=== PATIENT | male | born 1940 | race Caucasian/White ===

== ENCOUNTER 2017-07-19 23:45 | Observation (INO) | payer MEDICARE, OTHER ==
[~2017-07-19] VITALS: Ht 182.9 cm; Wt 75.0 kg
[2017-07-19 23:47] VITALS: BP 96/56; PULSE 75; RESP 16; O2SAT 94
[2017-07-20] VITALS (11 sets, daily range): BP systolic 107–152; BP diastolic 57–79; PULSE 55–88; RESP 16–20; TEMP 95.4–95.6; O2SAT 93–96
--- NOTE | 2017-07-20 00:30 | PD ---
HPI Chief Complaint: Chest Pain Time Seen by Provider: 00:02 Travel History International Travel<30 days: No Contact w/Intl Traveler<30days: No Traveled to known affect area: No History of Present Illness HPI 76yo M with PMH of AAA [facility] ED [facility] for chest pain. Said chest pain is midsternal and radiated to left arm and abdomen. Denies any sob, n/v, abdominal pain, focal weakness or numbness. PFSH Past Medical History AAA: Yes Atrial Fibrillation: Yes Depression: Yes Congestive Heart Failure: Yes Dementia: Yes Hypertension: Yes Medical other: Yes (SPINAL STENOSIS) Parkinson's Disease: Yes Schizophrenia: Yes Past Surgical History Appendectomy: Yes Tonsillectomy: Yes Social History Alcohol Use: No Tobacco Use: No Substance Use: No Allergies-Medications (Allergen,Severity, Reaction): Coded Allergies: No Known Drug Allergies (Verified Allergy, Unknown, 07/20/17) Reported Meds & Prescriptions Reported Meds & Active Scripts Active Reported Aplisol (Tuberculin Ppd) 5 Tub. Unit/0.1 Ml Inj 5 Unit ID Senna-Tabs (Sennosides) 8.6 Mg Tab 8.6 Mg PO DAILY Potassium Chloride ER (Potassium Chloride) 20 Meq Tab 20 Meq PO BID Carvedilol 3.125 Mg Tab 3.125 Mg PO BID Digoxin 0.125 Mg Tab 0.125 Mg PO DAILY Furosemide 20 Mg Tab 20 Mg PO DAILY Percocet (Oxycodone-Acetaminophen) 5-325 mg Tab 1 Tab PO Q6H PRN Melatonin 5 Mg Tab 3 Mg PO HS Almacone Liq (Pkmrsxnh-Cvfbhvozp-Rdlcqpqpfhq Liq) 200-200-20 Mg/5 Ml Susp 10 Ml PO QID Take between meals or as directed. Shake well. Do not exceed 120 mL/24 hrs. Mucinex DM (Dextromethorphan-Guaifenesin) 30-600 Mg Tab 1 Tab PO BID PRN Atorvastatin (Atorvastatin Calcium) 40 Mg Tab 40 Mg PO HS Fluoxetine (Fluoxetine HCl) 40 Mg Cap 40 Cap PO DAILY Aspirin 81 Mg Chew 81 Mg CHEW DAILY Klor-Con 10 (Potassium Chloride) 10 Meq Tab 10 Meq PO BID Gabapentin 100 Mg Cap 100 Mg PO TID Amantadine (Amantadine HCl) 100 Mg Tab 100 Mg PO BID Docusate Sodium 100 Mg Cap 100 Mg PO DAILY Milk of Magnesia Liq (Magnesium Hydroxide) 400 Mg/5 Ml Susp 5 Ml PO DAILY PRN Lisinopril 2.5 Mg Tab 2.5 Mg PO DAILY Review of Systems Except as stated in HPI: all other systems reviewed are Neg Physical Exam Narrative GENERAL: 76yo M in mild distress. SKIN: Focused skin assessment warm/dry. HEAD: Atraumatic. Normocephalic. EYES: Pupils equal and round. No scleral icterus. No injection or drainage. ENT: No nasal bleeding or discharge. Mucous membranes pink and moist. NECK: Trachea midline. No JVD. CARDIOVASCULAR: Regular rate and rhythm. No murmur appreciated. RESPIRATORY: No accessory muscle use. Clear to auscultation. Breath sounds equal bilaterally. GASTROINTESTINAL: Abdomen soft, mild epigastric ttp. No rebound tenderness or guarding. MUSCULOSKELETAL: No obvious deformities. No clubbing. No cyanosis. No edema. NEUROLOGICAL: Awake and alert. No obvious cranial nerve deficits. Motor grossly within normal limits. Normal speech. PSYCHIATRIC: Appropriate mood and affect; insight and judgment normal. Data Data Last Documented VS Vital Signs Date Time Temp Pulse Resp B/P (MAP) Pulse Ox O2 Delivery O2 Flow Rate FiO2 07/20/17 04:00 62 16 121/63 (82) 95 Nasal Cannula 2.00 Orders Orders Basic Metabolic Panel (Bmp) (07/20/17 00:12) Complete Blood Count With Diff (07/20/17 00:12) Magnesium (Mg) (07/20/17 00:12) Prothrombin Time / Inr (Pt) (07/20/17 00:12) Act Partial Throm Time (Ptt) (07/20/17 00:12) Troponin I (07/20/17 00:12) Chest, Single Ap (07/20/17 00:12) Ecg Monitoring (07/20/17 00:12) Bilateral Bp Monitoring (07/20/17 00:12) Iv Access Insert/Monitor (07/20/17 00:12) Oximetry (07/20/17 00:12) Cta Thor Abd Aorta W Iv C W3d (07/20/17 00:12) Iohexol 350 Inj (Omnipaque 350 Inj) (07/20/17 02:06) Admit Order (Ed Use Only) (07/20/17 04:15) Labs Laboratory Tests Test 07/20/17 00:20 White Blood Count 5.3 TH/MM3 Red Blood Count 4.08 MIL/MM3 Hemoglobin 12.4 GM/DL Hematocrit 38.2 % Mean Corpuscular Volume 93.7 FL Mean Corpuscular Hemoglobin 30.4 PG Mean Corpuscular Hemoglobin Concent 32.5 % Red Cell Distribution Width 14.6 % Platelet Count 141 TH/MM3 Mean Platelet Volume 8.3 FL Neutrophils (%) (Auto) 55.9 % Lymphocytes (%) (Auto) 31.2 % Monocytes (%) (Auto) 8.9 % Eosinophils (%) (Auto) 3.0 % Basophils (%) (Auto) 1.0 % Neutrophils # (Auto) 3.0 TH/MM3 Lymphocytes # (Auto) 1.7 TH/MM3 Monocytes # (Auto) 0.5 TH/MM3 Eosinophils # (Auto) 0.2 TH/MM3 Basophils # (Auto) 0.1 TH/MM3 CBC Comment DIFF FINAL Differential Comment Prothrombin Time 12.4 SEC Prothromb Time International Ratio 1.2 RATIO Activated Partial Thromboplast Time 33.8 SEC Blood Urea Nitrogen 16 MG/DL Creatinine 0.65 MG/DL Random Glucose 62 MG/DL Calcium Level 7.8 MG/DL Magnesium Level 1.9 MG/DL Sodium Level 146 MEQ/L Potassium Level 4.0 MEQ/L Chloride Level 108 MEQ/L Carbon Dioxide Level 34.9 MEQ/L Anion Gap 3 MEQ/L Estimat Glomerular Filtration Rate 119 ML/MIN Troponin I 0.03 NG/ML [facility] Medical Decision Making Medical Screen Exam Complete: Yes Emergency Medical Condition: Yes Interpretation(s) EKG: Afib 62bpm. RBBB. Differential Diagnosis ACS vs. aortic dissection vs. GERD Narrative Course 76yo M with midsternal chest pain that radiates to abdomen and left arm. Labs reviewed, no leukocytosis. Troponin negative at 0.03. Glucose low at 62, given juice. CXR negative. CTA showed no acute findings. Pt currently with no chest pain. Will give aspirin and admit to chest pain center. Diagnosis Primary Impression: Chest pain Qualified Codes: R07.9 - Chest pain, unspecified Admitting Information Admitting Physician Requests: Noreen RiveraMyrna DO Jul 20, 2017 00:30
[2017-07-20 00:33] LABS: BASOPHIL # 0.1 TH/MM3 (0-0.2); EOSINOPHIL # 0.2 TH/MM3 (0-0.4); HEMATOCRIT 38.2 % (39.0-51.0); HEMOGLOBIN 12.4 GM/DL (13.0-17.0); LYMPH % 31.2 % (9.0-44.0); LYMPHOCYTE # 1.7 TH/MM3 (1.0-4.8); MEAN CELL VOLUME 93.7 FL (80.0-100.0); MEAN CORPUSCULAR HEMOGLOBIN 30.4 PG (27.0-34.0); MEAN CORPUSCULAR HGB CONC 32.5 % (32.0-36.0); MEAN PLATELET VOLUME 8.3 FL (7.0-11.0); MONO % 8.9 % (0.0-8.0); MONOCYTE # 0.5 TH/MM3 (0-0.9); NEUT % 55.9 % (16.0-70.0); PLATELET COUNT 141 TH/MM3 (150-450); RED BLOOD COUNT 4.08 MIL/MM3 (4.50-5.90); RED CELL DISTRIBUTION WIDTH 14.6 % (11.6-17.2); WHITE BLOOD COUNT 5.3 TH/MM3 (4.0-11.0)
--- NOTE | 2017-07-20 01:02 | RADRPT ---
EXAM DATE/TIME: 07/20/2017 00:33 [facility] COMPARISON: No previous studies available for comparison. INDICATIONS : Chest pain. MEDICAL HISTORY : Unobtainable SURGICAL HISTORY : Unobtainable ENCOUNTER: Initial ACUITY: 1 day PAIN SCORE: Non-responsive. LOCATION: Bilateral chest FINDINGS: A single view of the chest demonstrates the lungs to be symmetrically aerated without evidence of mas s, infiltrate or effusion. The cardiomediastinal contours are unremarkable. Osseous structures are intact. CONCLUSION: No acute disease. Ehsan Alva MD on July 20, 2017 at 0:59 Board Certified Radiologist. This report was verified electronically.
[2017-07-20 01:03] LABS: INTERNATIONAL NORMALIZED RATIO 1.2 RATIO; PROTHROMBIN TIME - PATIENT 12.4 SEC (9.8-11.6)
[2017-07-20 01:15] LABS: BICARBONATE 34.9 MEQ/L (21.0-32.0); CALCIUM 7.8 MG/DL (8.5-10.1); CREATININE 0.65 MG/DL (0.60-1.30); MAGNESIUM 1.9 MG/DL (1.5-2.5)
[2017-07-20 01:19] LABS: TROPONIN I 0.03 NG/ML (0.02-0.05)
[2017-07-20] MEDS ORDERED: IOHEXOL 350 MG/ML 10 ML VIAL (for RAD DIAG) IVCONTRAST ONE (02:06)
--- NOTE | 2017-07-20 02:54 | RADRPT ---
EXAM DATE/TIME: 07/20/2017 01:54 [facility] COMPARISON: No previous studies available for comparison. INDICATIONS : Chest pain. IV CONTRAST: 100 cc Omnipaque 350 (iohexol) IV RADIATION DOSE: 8.83 CTDIvol (mGy) MEDICAL HISTORY : Aneurysm, abdominal. Hypertension. Congestive heart failure. SURGICAL HISTORY : Appendectomy. ENCOUNTER: Initial ACUITY: 1 day PAIN SCALE: 5/10 LOCATION: chest TECHNIQUE: Volumetric scanning was performed using a multi-row detector CT scanner. The data was post processed with a variety of visualization algorithms including full volume maximum intensity projection, multi -planar sliding thin slab reformation, curved planar reformation, and surface rendering techniques. Using automated exposure control and adjustment of the mA and/or kV according to patient size, radiat ion dose was kept as low as reasonably achievable to obtain optimal diagnostic quality images. DICOM format image data is available electronically for review and comparison. FINDINGS: LUNGS: There is no consolidation or pneumothorax. No concerning pulmonary nodule is visualized. No pleural fluid is present. MEDIASTINUM: No abnormally enlarged lymph nodes by CT criteria. No axillary or hilar abnormalities are identified. ABDOMEN: The liver and spleen are free of focal defects. The gallbladder and pancreas demonstrate no abnormali ty. The adrenal glands are normal. The kidneys demonstrate no evidence of solid renal mass or hydrone phrosis. No free fluid or abdominal masses are identified. No para-aortic adenopathy is seen. PELVIS: No evidence of free fluid or pelvic mass. No abnormally enlarged inguinal or retroperitoneal lymph no tha are present. The bladder is unremarkable. THORACIC AORTA: There is minimal dilatation of the ascending thoracic aorta. Truncus configuration normal branching o f the great vessels. There is no evidence of aneurysm or dissection. ABDOMINAL AORTA: Mild aneurysmal dilatation of the infrarenal aorta to a diameter of 3.6 cm. No evidence of abdominal aortic dissection or significant stenosis. The aortic visceral vessels are patent. PELVIC VESSELS: Unopacified secondary to poor bolus timing. No evidence of iliac aneurysm. CONCLUSION: No acute findings. Mild aneurysmal dilatation of the ascending thoracic aorta and of the infrarenal a augustus. Ehsan Alva MD on July 20, 2017 at 2:44 Board Certified Radiologist. This report was verified electronically.
[2017-07-20] MEDS ORDERED: SODIUM CHLORIDE 0.9% FLUSH 10 ML FLUSH IV FLUSH PRN (05:15)
[2017-07-20] MEDS ORDERED: MELA5 PO (06:33)
[2017-07-20] MEDS ORDERED: DIGO0.12 PO (06:33)
[2017-07-20] MEDS ORDERED: haldol (06:33)
[2017-07-20] MEDS ORDERED: GABA100C4 PO (06:33)
[2017-07-20] MEDS ORDERED: LISI2.5T3 PO (06:33)
[2017-07-20] MEDS ORDERED: ALMASUS2 PO (06:33)
[2017-07-20] MEDS ORDERED: KLOR10TA PO (06:33)
[2017-07-20] MEDS ORDERED: POTA-163 PO (06:33)
[2017-07-20] MEDS ORDERED: CARV3.12 PO (06:33)
[2017-07-20] MEDS ORDERED: APLI5INJ2 (06:33)
[2017-07-20] MEDS ORDERED: AMAN100T PO (06:33)
[2017-07-20] MEDS ORDERED: FLUO40CA PO (06:33)
[2017-07-20] MEDS ORDERED: MILKSUS PO (06:33)
[2017-07-20] MEDS ORDERED: DOCU100C15 PO (06:33)
[2017-07-20] MEDS ORDERED: HUMIBIDDM PO (06:33)
[2017-07-20] MEDS ORDERED: PERC5TAB12 PO (06:33)
[2017-07-20] MEDS ORDERED: ATOR40TA16 PO (06:33)
[2017-07-20] MEDS ORDERED: ASPI-516 CHEW (06:33)
[2017-07-20] MEDS ORDERED: SENN8.6T36 PO (06:33)
[2017-07-20] MEDS ORDERED: FURO20TA PO (06:33)
[2017-07-20 06:54] LABS: TROPONIN I 0.02 NG/ML (0.02-0.05)
[2017-07-20] MEDS ORDERED: APLI5INJ2 ID (08:13)
[2017-07-20] MEDS ORDERED: SODIUM CHLORIDE 0.9% FLUSH 10 ML FLUSH IV FLUSH SCH (09:00)
[2017-07-20 09:11] LABS: TROPONIN I 0.02 NG/ML (0.02-0.05)
[2017-07-20] MEDS ORDERED: FLUoxetine HCL 20 MG CAP PO SCH (09:30)
[2017-07-20] MEDS ORDERED: AMANTADINE HCL 100 MG CAP PO SCH (09:30)
[2017-07-20] MEDS ORDERED: CARVEDILOL 3.125 MG TAB PO SCH (09:30)
[2017-07-20] MEDS ORDERED: DIGOXIN 0.125 MG TAB PO SCH (09:30)
[2017-07-20] MEDS ORDERED: FUROSEMIDE 20 MG TAB PO SCH (09:30)
[2017-07-20] MEDS ORDERED: POTASSIUM CHLORIDE 20 MEQ CONTROLLED RELEASE TAB PO SCH (09:30)
[2017-07-20] MEDS ORDERED: oxyCODONE/ACETAMINOPHEN 5 MG/325 MG TAB PO PRN (09:30)
[2017-07-20] MEDS ORDERED: LISINOPRIL 5 MG TAB PO SCH (10:00)
--- NOTE | 2017-07-20 11:04 | HHI.HP ---
[facility] Primary Care Physician Sorin Lino MD Chief Complaint Chest pain History of Present Illness This is a 76-year-old male with history of abdominal aortic aneurysm, chronic atrial fibrillation, congestive heart failure, hypertension, dementia, schizophrenia, hyperlipidemia, GERD with a complaint of chest pain. When asked how long it has been there, patient states "2 years." And asked if it is been bothering her more recently, patient states "I think it woke me up last night." Thinks he may been short of breath. Cannot recall being nauseous or sweaty. Cannot recall recent stress testing however patient is currently residing at [facility] and there is a progress note dated March 13, 2017 stating he had an abnormal stress test and that patient would be treated medically. Review of Systems General: Active to some limited secondary to patient's dementia. Patient denies fevers, chills recent, and recent travel HEENT: Patient denies headache, sore throat, difficulty swallowing. Cardiovascular: Has the chest discomfort as mentioned above. Denies sensation of heart beating rapidly or irregularly. No syncope. Respiratory: Denies shortness of breath or inspirational chest discomfort. Denies coughing wheezing or hemoptysis. GI: Patient denies nausea, vomiting, diarrhea, abdominal pain, bloody stools. Musculoskeletal: Patient denies joint pain or edema. Denies calf pain or edema. Neurovascular: Patient denies numbness, tingling, weakness in extremities. Denies headache. Endocrine: Denies polyuria and polydipsia. Hematologic: Denies easy bruising. Skin: Denies rash or itching. Past Family Social History Allergies: Coded Allergies: No Known Drug Allergies (Verified Allergy, Unknown, 07/20/17) Past Medical History Abdominal aortic aneurysm, chronic atrial fibrillation and not on anticoagulation medication secondary to fall risk. Also has history of hypertension, hyperlipidemia, dementia, schizophrenia, GERD, CHF. Past Surgical History Appendectomy and tonsillectomy. Reported Medications Reported Meds & Active Scripts Active Reported Aplisol (Tuberculin Ppd) 5 Tub. Unit/0.1 Ml Inj 5 Unit ID Senna-Tabs (Sennosides) 8.6 Mg Tab 8.6 Mg PO DAILY Potassium Chloride ER (Potassium Chloride) 20 Meq Tab 20 Meq PO BID Carvedilol 3.125 Mg Tab 3.125 Mg PO BID Digoxin 0.125 Mg Tab 0.125 Mg PO DAILY Furosemide 20 Mg Tab 20 Mg PO DAILY Percocet (Oxycodone-Acetaminophen) 5-325 mg Tab 1 Tab PO Q6H PRN Melatonin 5 Mg Tab 3 Mg PO HS Almacone Liq (Overmbwl-Uhsegbsep-Dnxlkkpohgh Liq) 200-200-20 Mg/5 Ml Susp 10 Ml PO QID Take between meals or as directed. Shake well. Do not exceed 120 mL/24 hrs. Mucinex DM (Dextromethorphan-Guaifenesin) 30-600 Mg Tab 1 Tab PO BID PRN Atorvastatin (Atorvastatin Calcium) 40 Mg Tab 40 Mg PO HS Fluoxetine (Fluoxetine HCl) 40 Mg Cap 40 Cap PO DAILY Aspirin 81 Mg Chew 81 Mg CHEW DAILY Klor-Con 10 (Potassium Chloride) 10 Meq Tab 10 Meq PO BID Gabapentin 100 Mg Cap 100 Mg PO TID Amantadine (Amantadine HCl) 100 Mg Tab 100 Mg PO BID Docusate Sodium 100 Mg Cap 100 Mg PO DAILY Milk of Magnesia Liq (Magnesium Hydroxide) 400 Mg/5 Ml Susp 5 Ml PO DAILY PRN Lisinopril 2.5 Mg Tab 2.5 Mg PO DAILY Active Ordered Medications Current Medications Medications (Trade) Dose Ordered Sig/Radha Route Start Time Stop Time Status Last Admin (NS Flush) 2 ml UNSCH PRN IV FLUSH 07/20/17 05:15 (NS Flush) 2 ml BID IV FLUSH 07/20/17 09:00 07/20/17 08:08 (Symmetrel) 100 mg BID PO 07/20/17 09:30 (Aspirin Chew) 81 mg DAILY CHEW 07/21/17 09:00 (Lipitor) 40 mg HS PO 07/20/17 21:00 (Coreg) 3.125 mg BID PO 07/20/17 09:30 (Lanoxin) 0.125 mg DAILY PO 07/20/17 09:30 (PROzac) 40 mg DAILY PO 07/20/17 09:30 (Lasix) 20 mg DAILY PO 07/20/17 09:30 (Neurontin) 100 mg TID PO 07/20/17 13:00 (Percocet 5-325 Mg) 1 tab Q6H PRN PO 07/20/17 09:30 (KCl) 20 meq BID PO 07/20/17 09:30 (Prinivil) 2.5 mg DAILY PO 07/20/17 10:00 Family History Patient is not aware of his family history. Social History Patient does not smoke, use alcohol or illicit drugs. Physical Exam Vital Signs Vital Signs Date Time Temp Pulse Resp B/P (MAP) Pulse Ox O2 Delivery O2 Flow Rate FiO2 07/20/17 08:40 95.4 55 20 110/79 (89) 95 07/20/17 06:35 07/20/17 06:05 60 16 116/60 (78) 94 Nasal Cannula 2.00 07/20/17 05:21 95 Nasal Cannula 2.00 07/20/17 05:00 56 16 115/67 (83) 95 Nasal Cannula 2.00 07/20/17 04:00 62 16 121/63 (82) 95 Nasal Cannula 2.00 07/20/17 03:10 64 16 107/57 (74) 93 Nasal Cannula 2.00 07/20/17 01:22 58 16 120/70 (87) 96 Nasal Cannula 2.00 07/20/17 01:21 95 Room Air 07/19/17 23:53 98 16 96 Room Air 07/19/17 23:47 75 16 96/56 (69) 94 Physical Exam GENERAL: This is a well-nourished, well-developed patient, in no apparent distress. Patient speaks in clear complete sentences. Patient is pleasant. HEENT: Head is atraumatic and normocephalic. Neck is supple without lymphadenopathy and trachea is midline. No JVD or carotid bruits. CARDIOVASCULAR: Irregularly irregular rate and rhythm with a rate in the 50s without murmurs, gallops, or rubs. RESPIRATORY: Clear to auscultation. Breath sounds equal bilaterally. No wheezes , rales, or rhonchi. Chest wall is nontender. No use of accessory muscles. GASTROINTESTINAL: Abdomen is nontender, nondistended. Abdomen soft. No obvious pulsatile mass or bruit. No CVA tenderness. Strong femoral pulses bilaterally. Normal bowel sounds in all quadrants. MUSCULOSKELETAL: Patient is moving upper and lower extremities freely. No calf tenderness or edema, no Homans sign. Strong pulses in upper and lower extremities. NEUROLOGICAL: Patient is alert but is not oriented to person, place, or to time. Cranial nerves 2-12 are grossly intact. No focal deficits and speech is clear. SKIN: No rash and turgor is normal. Laboratory Laboratory Tests Test 07/20/17 00:20 07/20/17 06:16 07/20/17 08:10 White Blood Count 5.3 Red Blood Count 4.08 Hemoglobin 12.4 Hematocrit 38.2 Mean Corpuscular Volume 93.7 Mean Corpuscular Hemoglobin 30.4 Mean Corpuscular Hemoglobin Concent 32.5 Red Cell Distribution Width 14.6 Platelet Count 141 Mean Platelet Volume 8.3 Neutrophils (%) (Auto) 55.9 Lymphocytes (%) (Auto) 31.2 Monocytes (%) (Auto) 8.9 Eosinophils (%) (Auto) 3.0 Basophils (%) (Auto) 1.0 Neutrophils # (Auto) 3.0 Lymphocytes # (Auto) 1.7 Monocytes # (Auto) 0.5 Eosinophils # (Auto) 0.2 Basophils # (Auto) 0.1 CBC Comment DIFF FINAL Differential Comment Prothrombin Time 12.4 Prothromb Time International Ratio 1.2 Activated Partial Thromboplast Time 33.8 Blood Urea Nitrogen 16 Creatinine 0.65 Random Glucose 62 Calcium Level 7.8 Magnesium Level 1.9 Sodium Level 146 Potassium Level 4.0 Chloride Level 108 Carbon Dioxide Level 34.9 Anion Gap 3 Estimat Glomerular Filtration Rate 119 Troponin I 0.03 0.02 0.02 Total Creatine Kinase 37 35 Result Diagram: 07/20/17 0020 07/20/17 0020 Imaging Last 48 hours Impressions Chest X-Ray 07/20/17 001 Signed Impressions: Service Date/Time: Thursday, July 20, 2017 00:33 - CONCLUSION: No acute disease. Ehsan Alva MD Aorta CTA 07/20/17 001 Signed Impressions: Service Date/Time: Thursday, July 20, 2017 01:54 - CONCLUSION: No acute findings. Mild aneurysmal dilatation of the ascending thoracic aorta and of the infrarenal aorta. Ehsan Alva MD Course EKGs are age fibrillation with a rate of 48 and 62. There is a right bundle branch block. Caprini VTE Risk Assessment Caprini VTE Risk Assessment: Mod/High Risk (score >= 2) Caprini Risk Assessment Model Point Value = 1 Point Value = 2 Point Value = 3 Point Value = 5 Age 41-60 Minor surgery BMI > 25 kg/m2 Swollen legs Varicose veins or History of unexplained or recurrent spontaneous Oral contraceptives or hormone replacement Sepsis (< 1 month) Serious lung disease, including pneumonia (< 1 month) Abnormal pulmonary function Acute myocardial infarction Congestive heart failure (< 1 month) History of inflammatory bowel disease Medical patient at bed rest Age 61-74 Arthroscopic surgery Major open surgery (> 45 min) Laparoscopic surgery (> 45 min) Malignancy Confined to bed (> 72 hours) Immobilizing plaster cast Central venous access Age >= 75 History of VTE Family history of VTE Factor V Leiden Prothrombin [id number] Lupus anticoagulant Anticardiolipin antibodies Elevated serum homocysteine Heparin-induced thrombocytopenia Other congenital or acquired thrombophilia Stroke (< 1 month) Elective arthroplasty Hip, pelvis, or leg fracture Acute spinal cord injury (< 1 month) Prophylaxis Regimen Total Risk Factor Score Risk Level Prophylaxis Regimen 0-1 Low Early ambulation 2 Moderate Order ONE of the following: *Sequential Compression Device (SCD) *Heparin 5000 units SQ BID 3-4 Higher Order ONE of the following medications: *Heparin 5000 units SQ TID *Enoxaparin/Lovenox 40 mg SQ daily (WT < 150 kg, CrCl > 30 mL/min) *Enoxaparin/Lovenox 30 mg SQ daily (WT < 150 kg, CrCl > 10-29 mL/min) *Enoxaparin/Lovenox 30 mg SQ BID (WT < 150 kg, CrCl > 30 mL/min) AND/OR *Sequential Compression Device (SCD) 5 or more Highest Order ONE of the following medications: *Heparin 5000 units SQ TID (Preferred with Epidurals) *Enoxaparin/Lovenox 40 mg SQ daily (WT < 150 kg, CrCl > 30 mL/min) *Enoxaparin/Lovenox 30 mg SQ daily (WT < 150 kg, CrCl > 10-29 mL/min) *Enoxaparin/Lovenox 30 mg SQ BID (WT < 150 kg, CrCl > 30 mL/min) AND *Sequential Compression Device (SCD) Assessment and Plan Assessment and Plan * Chest pain: Patient has had serial cardiac enzymes and EKGs for ruling out purposes. He will be seen by Dr. Camara of cardiology in the chest pain center. I discussed this patient with Dr. Lino and with Jason LEUNG. Request patient be discharged by further testing after he has ruled out. They will follow him outpatient basis. Return to ED as needed. * A. fib: Patient is in chronic atrial fibrillation. Or anticoagulation has been avoided secondary to fall risk. We will continue this plan. * Hypertension: Continue current medication. * Hyperlipidemia: Continue current medication. * Dementia: Continue current medication. Patient is stable this time. He and his physician are agreeable to this plan. Raj Herrera Jul 20, 2017 11:04
--- NOTE | 2017-07-20 11:36 | HHI.DCPOC ---
Discharge Care Plan Diagnosis: (1) Chest pain (2) Chronic a-fib (3) Hypertension (4) Hyperlipidemia Goals to Promote Your Health * To prevent worsening of your condition and complications * To maintain your health at the optimal level Directions to Meet Your Goals Take your medications as prescribed Follow your dietary instruction Follow activity as directed Keep your appointments as scheduled Take your immunizations and boosters as scheduled If your symptoms worsen call your PCP, if no PCP go to Urgent Care Center or Emergency Room Smoking is Dangerous to Your Health. Avoid second hand smoke Call the 24-hour hour crisis hotline for domestic abuse at Raj Herrera Jul 20, 2017 11:36
[2017-07-20] MEDS ORDERED: GABAPENTIN 100 MG CAP PO SCH (13:00)
--- NOTE | 2017-07-20 13:31 | EKG ---
Date Performed: 07/20/2017 Time Performed: 06:23:47 PTAGE: 76 years EKG: ATRIAL FIBRILLATION WITH SLOW VENTRICULAR RESPONSE RIGHT BUNDLE BRANCH BLOCK LEFT ANTERIOR FASCICULAR BLOCK small septal Q waves ABNORMAL ECG PREVIOUS TRACING : 07/19/2017 23.53 Since previous tracing, no significant change noted DOCTOR: Camilo Cmaara Interpretating Date/Time 07/23/2017 07:05:57
--- NOTE | 2017-07-20 13:43 | EKG ---
Date Performed: 07/19/2017 Time Performed: 23:53:38 PTAGE: 76 years EKG: ATRIAL FIBRILLATION RIGHT BUNDLE BRANCH BLOCK LEFT ANTERIOR FASCICULAR BLOCK POSSIBLE ANTER IOR MYOCARDIAL INFARCTION ABNORMAL ECG NO PREVIOUS TRACING DOCTOR: Camilo Camara Interpretating Date/Time 07/20/2017 13:43:04
--- NOTE | 2017-07-20 13:50 | EKG ---
Date Performed: 07/20/2017 Time Performed: 08:20:11 PTAGE: 76 years EKG: ATRIAL FIBRILLATION RIGHT BUNDLE BRANCH BLOCK LEFT ANTERIOR FASCICULAR BLOCK POSSIBLE ANTER IOR MYOCARDIAL INFARCTION ABNORMAL ECG PREVIOUS TRACING : 07/20/2017 06.23 Since previous tracing, no significant change noted DOCTOR: Camilo Camara Interpretating Date/Time 07/20/2017 13:48:24
[2017-07-20] MEDS ORDERED: ATORVASTATIN 40 MG TAB PO SCH (21:00)
[2017-07-21] MEDS ORDERED: ASPIRIN 81 MG CHEW TAB CHEW SCH (09:00)
== END 2017-07-20 15:04 | disposition home or self-care (01) ==
LOC: NEPE 23:45 → NEDA 07-20 04:16 → NEPFCDU 07-20 06:32
PROVIDERS: ADMIT Internal Medicine Cardiovascular Disease; ATTEND Internal Medicine Cardiovascular Disease
DX: R07.2 Precordial pain (principal); I48.2 Chronic atrial fibrillation; I11.0 Hypertensive heart disease with heart failure; I50.9 Heart failure, unspecified; E78.5 Hyperlipidemia, unspecified; G20 Parkinson's disease; I71.4 Abdominal aortic aneurysm, without rupture; M48.00 Spinal stenosis, site unspecified; K21.9 Gastro-esophageal reflux disease without esophagitis; Z91.81 History of falling; F03.90 Unspecified dementia, unspecified severity, without behavioral disturbance, psychotic disturbance, mood disturbance, and anxiety
CPT/HCPCS: 71010; 71275; 74174; 80048; 82550; 82948; 83735; 84484; 85025; 85610; 85730; 93005; 99285; G0378; Q9967